=== PATIENT | female | born 1940 | race Hispanic/Latino ===

== ENCOUNTER 2021-01-17 17:17 | Emergency (ER) | payer OTHER, MEDICARE ==
[~2021-01-17] VITALS: Ht 157.5 cm; Wt 72.6 kg
[~2021-01-17 17:17] MED LIST: ASPI-1197 PO; DICY20TA3 PO; DOXY50CA2 PO; GLIM4TAB36 PO; INSU100I21 SQ; LISI2.5T13 PO; METF-446 PO; PANT40TA55 PO; ROSU20TA23 PO; TRAM50TA4 PO; TRAV2.5D OU
[2021-01-17 18:39] LABS: APPEARANCE,URINE Clear (CLEAR); BILIRUBIN,URINE Negative (NEGATIVE); COLOR,URINE Yellow (YELLOW); GLUCOSE, URINE (UA) Negative (NEGATIVE); KETONES,URINE Negative (NEGATIVE); LEUKOCYTE ESTERASE ,URINE Small (NEGATIVE); NITRATE,URINE Negative (NEGATIVE); OCCULT BLOOD,URINE Trace (NEGATIVE); PROTEIN,URINE Negative (NEGATIVE); UROBILINOGEN,URINE 0.2 mg/dL (0.2-1.0)
[2021-01-17 18:41] LABS: BASOPHILS % (AUTO) 0.9 % (0.0-5.0); EOSINOPHILS % (AUTO) 1.3 % (0.0-8.0); HEMATOCRIT 41.9 % (36-48); LYMPHOCYTES % (AUTO) 29.3 % (21.0-51.0); MEAN CORPUSCULAR HEMOGLOBIN 28.9 pg (27.0-33.0); MEAN CORPUSCULAR HGB CONC 33.7 g/dL (32.0-36.0); MEAN CORPUSCULAR VOLUME 85.9 fL (79-99); MONOCYTES % (AUTO) 5.9 % (3.0-13.0); NEUTROPHILS % (AUTO) 61.6 % (40.0-77.0); PLATELET COUNT (AUTO) 204 K/uL (130-400); RED BLOOD CELL COUNT(AUTO) 4.88 MIL/uL (4.00-5.50); RED CELL DISTRIBUTION WIDTH 12.8 % (11.0-15.5); WHITE BLOOD COUNT (AUTO) 7.8 K/uL (4.8-10.8)
[2021-01-17 18:48] LABS: RBC,URINE 0-1 /HPF (0-1)
[2021-01-17 18:50] LABS: BACTERIA,URINE Rare /HPF (None Seen); SQUAMOUS EPITHELIAL CELL,UR Few /HPF (0-2)
[2021-01-17 18:51] LABS: CREATININE 1.1 mg/dL (0.5-1.5); POTASSIUM 4.2 mmol/L (3.5-5.1)
[2021-01-17 18:55] LABS: ALBUMIN 4.4 g/dL (3.5-5.0); BILIRUBIN,TOTAL 0.3 mg/dL (0.2-1.0); TOTAL PROTEIN, SERUM 8.1 g/dL (6.0-8.3)
[2021-01-17] MEDS ORDERED: KETOROLAC 15MG/ML VIAL (15MG/ML) IV ONE (20:30)
[2021-01-17] MEDS ORDERED: ORPHENADRINE CITRATE 30 MG/ML ML IM ONE (20:30)
[2021-01-17] MEDS ORDERED: ORPH-43 PO (21:00)
[2021-01-17] MEDS ORDERED: CEFD300C3 PO (21:00)
[2021-01-17] MEDS ORDERED: IBUP-2070 PO (21:00)
[2021-01-17 21:04] VITALS: BP 145/78
== END 2021-01-17 21:20 | disposition home or self-care (01) ==
LOC: EDH 17:17
DX: S39.012A Strain of muscle, fascia and tendon of lower back, initial encounter (principal); N39.0 Urinary tract infection, site not specified; I10 Essential (primary) hypertension; E10.9 Type 1 diabetes mellitus without complications; Z79.1 Long term (current) use of non-steroidal anti-inflammatories (NSAID); Z79.82 Long term (current) use of aspirin; Z79.899 Other long term (current) drug therapy; X58.XXXA Exposure to other specified factors, initial encounter; Y93.89 Activity, other specified; Y92.89 Other specified places as the place of occurrence of the external cause; Y99.8 Other external cause status
CPT/HCPCS: 36415; 74176; 80053; 81001; 82150; 83690; 85025; 96372; 96374; 99285; J1885; J2360

== ENCOUNTER 2021-01-29 07:54 | Emergency (ER) | payer OTHER, MEDICARE ==
[~2021-01-29] VITALS: Ht 154.9 cm; Wt 68.0 kg
[~2021-01-29 07:54] MED LIST changes: +CEFD300C3 PO; +IBUP-2070 PO; +ORPH-43 PO
[2021-01-29] MEDS: SOLU-MEDROL 40MG VIAL IVP ONE (08:59)
[2021-01-29] MEDS: DiphenhydrAMINE HCL 50 MG/ML VIAL IV ONE (08:59)
[2021-01-29 09:43] VITALS: BP 131/47
[2021-01-29] MEDS ORDERED: PRED20TA3 PO (10:31)
== END 2021-01-29 10:59 | disposition home or self-care (01) ==
LOC: EDH 07:54
DX: T78.49XA Other allergy, initial encounter (principal); K14.8 Other diseases of tongue; I10 Essential (primary) hypertension; E10.9 Type 1 diabetes mellitus without complications; Z79.1 Long term (current) use of non-steroidal anti-inflammatories (NSAID); Z79.52 Long term (current) use of systemic steroids; Z79.82 Long term (current) use of aspirin; Z79.899 Other long term (current) drug therapy; X58.XXXA Exposure to other specified factors, initial encounter
CPT/HCPCS: 96374; 96375; 99284; J1200; J2920